=== PATIENT | female | born 2000 | race Caucasian/White ===

== ENCOUNTER 2022-04-23 16:25 | Inpatient (IN) ==
[2022-04-23] MEDS ORDERED: Vancomycin 1,250 MG/262.5 ML IV.SOLN IVPB ONE (19:18)
[2022-04-23] MEDS ORDERED: ceFAZolin 2,000 MG in Water for inj. (sterile) 20 ML IVP ONE (19:18)
[2022-04-23] MEDS ORDERED: Ibuprofen 600 MG TABLET PO ONE (19:19)
[2022-04-23] MEDS ORDERED: Iopamidol - 370 500 ML MLS IVP ONE (19:19)
[2022-04-23] MEDS: 0.9 % Sodium Chloride 1,000 ML IVC SCH (20:20)
[2022-04-23] MEDS ORDERED: Ondansetron 4 MG/2 ML VIAL IVP ONE (20:32)
[2022-04-23 20:34] LABS: Basophils % 0.2 %; Eosinophils % 0.1 %; Hematocrit 42.2 % (35.3-44.9); Hemoglobin 13.5 g/dL (11.5-15.4); Immature Granulocytes % 0.4 % (0-4); Lymphocytes # 2.6 K/mcL (0.6-4.6); Lymphocytes % 18.9 %; Mean Corpuscular Hemoglobin 25.8 pg (28.0-33.3); Mean Corpuscular Volume 80.5 fL (83.0-100.0); Mean Platelet Volume 9.7 fL (9.4-12.4); Monocytes # 0.7 K/mcL (0.0-1.3); Monocytes % 5.3 %; Neutrophils # 10.4 K/mcL (1.6-8.9); Platelet Count 261 K/mcL (140-400); Red Blood Count 5.24 M/mcL (3.82-4.97); Red Cell Distribution Width 15.1 % (11.5-14.5); Segmented Neutrophils % 75.1 %; White Blood Count 13.9 K/mcL (4.3-11.1)
[2022-04-23 20:54] LABS: BUN/Creatinine Ratio 13 (6-26); Blood Urea Nitrogen 10 mg/dL (6-20); C-Reactive Protein 7 mg/L (Less than 10); Carbon Dioxide 24 mEq/L (23-29); Chloride 104 mEq/L (98-107); Glucose 111 mg/dL (70-105); Osmolality,Calculated 284 (280-300); Potassium 3.5 mEq/L (3.5-5.1); Sodium 137 mEq/L (136-145)
[2022-04-23 21:27] LABS: Bacteria,Urine Few per hpf (None-Few); Bilirubin,Urine Negative (Negative); Blood,Urine Negative (Negative); Clarity,Urine Turbid (Clear); Color,Urine Yellow (Yellow); Glucose,Urine (UA) Normal (Normal); Ketones,Urine Trace mg/dL (Negative); Leukocyte Esterase,Urine Negative (Negative); Mucus,Urine Many per lpf (None-Few); Nitrite,Urine Negative (Negative); Protein,Urine 100 mg/dL (Neg-Trace); Specific Gravity,Urine > 1.030 (1.010-1.025); Squamous Epithelial Cell,Urine Moderate per hpf (None-Few)
[2022-04-24] MEDS ORDERED: Ondansetron 4 MG/2 ML VIAL IVP PRN ×4 (00:27→19:05)
[2022-04-24] MEDS ORDERED: Ketorolac 30 MG/ML VIAL IVP PRN ×3 (00:27→14:48)
[2022-04-24] MEDS ORDERED: Melatonin 3 MG TABLET PO PRN ×2 (00:27→19:05)
[2022-04-24] MEDS ORDERED: Naloxone 0.4 MG/ML INJ IVP PRN ×2 (00:27→19:05)
[2022-04-24] MEDS ORDERED: 0.9 % Sodium Chloride 1,000 ML IVC SCH (00:30)
[2022-04-24] MEDS ORDERED: Vancomycin 1,250 MG/262.5 ML IV.SOLN IVPB SCH (08:00)
[2022-04-24] MEDS: Piperacillin/Tazobactam 3.375 GM in 0.9 % Sodium Chloride Mini Bag 100 ML IVPB SCH ×2 (09:21→16:07)
[2022-04-24] MEDS ORDERED: Lidocaine/EPI 1:100k 1% 10 ML Vial ONE (12:53)
[2022-04-24] MEDS ORDERED: dexmedeTOMIDine in 0.9 % NaCL 80 MCG/20 ML MLS ONE (13:07)
[2022-04-24] MEDS ORDERED: Ketamine HCL *QUVA* 50mg (1mL) SYRINGE ONE (13:07)
[2022-04-24] MEDS ORDERED: *HR* Midazolam HCl 2 MG/2 ML VIAL ONE (13:08)
[2022-04-24] MEDS ORDERED: *HR* Propofol 200 MG/20 ML VIAL IVP ONE (13:08)
[2022-04-24] MEDS ORDERED: Ondansetron 4 MG/2 ML VIAL ONE (13:08)
[2022-04-24] MEDS ORDERED: Lidocaine -MPF 2% 2 ML VIAL ONE (13:08)
[2022-04-24] MEDS ORDERED: *HR* FentaNYL (PF) 100 MCG/2 ML VIAL ONE (13:08)
[2022-04-24] MEDS ORDERED: *HR* HYDROmorphone PF 0.5 MG/0.5 ML SYRINGE IVP PRN ×2 (13:16→14:48)
[2022-04-24] MEDS ORDERED: Acetaminophen IV 1,000 MG/100 ML BAG IVPB PRN ×2 (13:16→14:46)
[2022-04-24] MEDS ORDERED: *HR* OxyCODONE Immed Rel 5 MG TABLET PO PRN ×2 (13:16→14:48)
[2022-04-24] MEDS ORDERED: *HR* Labetalol 20 MG/4 ML SYRINGE IVP PRN ×2 (13:16→14:49)
[2022-04-24] MEDS: carBAMazepine 200 MG TABLET PO SCH (20:05)
[2022-04-24] MEDS: Vancomycin 1,250 MG/262.5 ML IV.SOLN IVPB SCH (20:06)
[2022-04-24] MEDS: 0.9 % Sodium Chloride 1,000 ML IVC SCH (20:11)
[2022-04-24] MEDS ORDERED: Ketorolac 30 MG/ML VIAL IVP ONE (21:27)
[2022-04-25] MEDS: Piperacillin/Tazobactam 3.375 GM in 0.9 % Sodium Chloride Mini Bag 100 ML IVPB SCH ×2 (00:44→08:18)
[2022-04-25] MEDS: carBAMazepine 200 MG TABLET PO SCH ×2 (08:19→22:38)
[2022-04-25] MEDS: Vancomycin 1,250 MG/262.5 ML IV.SOLN IVPB SCH ×2 (08:25→22:42)
[2022-04-26 00:24] VITALS: BP 109/67; PULSE 62; TEMP 98; O2SAT 98
== END 2022-04-26 00:58 | disposition left against medical advice (07) | DRG 720 ==
LOC: EMEROOARM 16:25 → 3BNU 16:25 → SUATTDRO 04-24 00:41 → 3BNU 04-24 01:01
PROVIDERS: ADMIT Internal Medicine; ATTEND Registered Nurse